=== PATIENT | female | born 1955 | race African-American/Black ===

== ENCOUNTER 2017-07-27 19:55 | Emergency (ER) | payer OTHER ==
[2017-07-29 09:17] LABS: HEPATITIS C ANTIBODY <0.1 (0.0-0.9)
== END 2017-07-27 21:25 | disposition home or self-care (01) ==
LOC: D.ER 19:55
PROVIDERS: Nurse Practitioner Family
DX: Z77.21 Contact with and (suspected) exposure to potentially hazardous body fluids (principal); I10 Essential (primary) hypertension

== ENCOUNTER 2018-08-31 23:05 | Emergency (ER) | payer OTHER ==
[~2018-08-31] VITALS: Ht 167.6 cm; Wt 50.3 kg
[2018-08-31 23:09] VITALS: Ht 167.6 cm; Wt 50.3 kg
[2018-08-31] MEDS ORDERED: LISINOPRIL2.5 MG PO (23:11)
[2018-08-31] MEDS ORDERED: COREG12.5 MG (23:11)
[2018-08-31 23:17] LABS: HEMATOCRIT 26.3 % (36.0-48.0); MCHC 34.2 g/dL (31.0-37.0); MCV 93.6 fL (80.0-100.0); MEAN PLATELET VOLUME 9.7 fL (7.4-10.4); PLATELET COUNT 212 10x3/uL (130-400); RBC 2.81 10x6/uL (4.00-5.40); RDW 13.5 % (11.5-14.5); WBC 5.9 10x3/uL (4.8-10.8)
[2018-08-31 23:27] LABS: APTT 29.5 SECONDS (22.8-39.4); INR 0.94 (0.85-1.17); PROTIME 12.1 SECONDS (11.6-15.0)
[2018-08-31 23:51] LABS: BASOPHILS 1 % (0-2); EOSINOPHILS 3 % (0-7); LYMPHOCYTES 51 % (15-50); MONOCYTES 9 % (2-11); NEUTROPHILS 36 % (40-80)
[2018-08-31 23:52] LABS: PLATELET ESTIMATE NORMAL
[2018-08-31 23:59] LABS: ALKALINE PHOSPHATASE 34 U/L (46-116); ALT (SGPT) 21 U/L (10-68); BILIRUBIN - TOTAL 0.15 mg/dL (0.2-1.3); CALC OSMOLALITY 272 mosm/kg (275-300); CALCIUM 8.5 mg/dL (8.5-10.1); CHLORIDE - SERUM 103 mmol/L (98-107); CREATININE - SERUM 0.9 mg/dL (0.6-1.3); GLUCOSE 95 mg/dL (74-106); POTASSIUM - SERUM 4.3 mmol/L (3.5-5.1); PROTEIN - SERUM 6.9 g/dL (6.4-8.2); SODIUM 136 mmol/L (136-145); UREA NITROGEN 15 mg/dL (7-18); eGFR NON AFRICAN AMERICAN 67 mL/min (90-120)
[2018-09-01 00:10] LABS: CKMB 0.5 U/L (0.0-3.6); CREATINE KINASE 45 UL (21-215); MAGNESIUM - SERUM 1.9 mg/dL (1.8-2.4); TROPONIN-I < 0.017 ng/mL (0.000-0.060)
[2018-09-01 04:49] VITALS: BP 148/58
== END 2018-09-01 04:49 | disposition other institution (70) ==
LOC: D.ER 23:05
PROVIDERS: Emergency Medicine
DX: I95.9 Hypotension, unspecified (principal); R00.1 Bradycardia, unspecified; I25.10 Atherosclerotic heart disease of native coronary artery without angina pectoris; I10 Essential (primary) hypertension